=== PATIENT | female | born 1945 | race Caucasian/White ===

== ENCOUNTER 2017-11-28 18:44 | Inpatient (IN) | payer OTHER ==
[~2017-11-28] VITALS: Ht 162.6 cm; Wt 128.7 kg
[~2017-11-28 18:44] MED LIST: CALCIUM PO
[2017-11-28 19:35] LABS: HEMOGLOBIN 10.6 G/DL (11.9-15.5); MCH 26.6 PG (29.0-34.0); MCHC 32.1 G/DL (30.0-36.0); MCV 82.7 FL (83-99); PLATELET COUNT 543 K/uL (156-360); RBC DIS.WIDTH-CV 16.6 % (11.8-14.6); RBC DIS.WIDTH-SD 50.3 % (39-53); RED BLOOD COUNT 3.99 M/uL (3.80-5.20); WHITE BLOOD COUNT 22.7 K/uL (4.1-10.2)
[2017-11-28 19:36] LABS: CHLORIDE 103 mEq/L (99-109); POTASSIUM 4.1 mEq/L (3.7-5.4); SODIUM 137 mEq/L (136-147)
[2017-11-28 19:38] LABS: GLUCOSE 184 mg/dL (70-99)
[2017-11-28 19:42] LABS: CREATININE 0.7 mg/dL (0.6-1.3); GFR ESTIMATE (CALCULATED) > 59 mL/min/
[2017-11-28 19:43] LABS: UREA NITROGEN (BUN) 12 mg/dL (9-23)
[2017-11-28 19:47] LABS: TROP-I INTERPRETATION NEGATIVE; TROPONIN-I < 0.01 ng/mL (0.0-0.30)
[2017-11-28] MEDS ORDERED: DICYCLOMINE HCL10 MG PO (23:32)
[2017-11-28] MEDS ORDERED: GLIMEPIRIDE4 MG PO (23:34)
[2017-11-28] MEDS ORDERED: LEVEMIR FL100 UNIT/1 SC (23:35)
[2017-11-28] MEDS ORDERED: SUMATRIPTAN SUC50 MG PO (23:37)
[2017-11-28] MEDS ORDERED: MONTELUKAST SOD10 MG PO (23:38)
[2017-11-28] MEDS ORDERED: OXYCODONE-APAP1 EACH PO (23:39)
[2017-11-28] MEDS ORDERED: GABAPENTIN300 MG PO (23:41)
[2017-11-28] MEDS ORDERED: GABAPENTIN600 MG PO (23:43)
[2017-11-28] MEDS ORDERED: THEO-DUR,THEOC300 MG PO (23:46)
[2017-11-28] MEDS ORDERED: ADVAIR 500/501 DISK IH (23:47)
[2017-11-28] MEDS ORDERED: OMEPRAZOLE40 M1 PO (23:47)
[2017-11-28] MEDS ORDERED: LOSARTAN-HCTZ1 EAC1 PO (23:48)
[2017-11-28] MEDS ORDERED: NYSTATIN15 GM TP (23:49)
[2017-11-28] MEDS ORDERED: FUROSEMIDE40 MG PO (23:50)
[2017-11-28] MEDS ORDERED: ASPIR-LOW81 MG PO (23:51)
[2017-11-28] MEDS ORDERED: ALBUTEROL2.5 MG/3 M IH (23:52)
[2017-11-28] MEDS ORDERED: ZYRTEC10 M2 PO (23:52)
[2017-11-29] MEDS ORDERED: ONCE DAILY1 EACH PO (00:01)
[2017-11-29] MEDS ORDERED: AREDS 2 PO (00:04)
[2017-11-29] MEDS ORDERED: PROAIR HFA8.5 GM IH (00:04)
[2017-11-29] MEDS ORDERED: NOVOLOG 10100 UNITS/ SC (00:10)
[2017-11-29 00:43] LABS: ALBUMIN 3.1 g/dL (3.2-4.8)
[2017-11-29 00:46] LABS: TOTAL PROTEIN 5.8 g/dL (6.4-8.3)
[2017-11-29 00:48] LABS: TOTAL BILIRUBIN 0.1 mg/dL (0.0-1.0)
[2017-11-29 00:49] LABS: ALKALINE PHOSPHATASE 136 IU/L (3-129)
[2017-11-29 00:51] LABS: AST (GOT) 27 IU/L (2-34); DIRECT BILIRUBIN 0.1 mg/dL (0.0-0.3)
[2017-11-29 00:52] LABS: ALT (GPT) 15 IU/L (3-49); LIPASE 12 U/L (1.0-51.0)
[2017-11-29 01:33] LABS: ABS NEUTROPHIL COUNT 10.4; ANISOCYTOSIS 1+; BASOPHILS 1.3 %; EOSINOPHIL ABS CT 1.3; EOSINOPHILS 5.6 % (0-5.0); LYMPHOCYTES 43.5 % (15.0-45.0); MACROCYTES 1+; MONOCYTES 3.9 % (0-9.0); PLAT.SUFFICIENCY INCREASED; SEG.NEUTROPHILS 45.7 % (46.0-76.0)
[2017-11-29 02:14] VITALS: BP 149/67
[2017-11-29 06:13] LABS: HEMATOCRIT 31.8 % (36.0-46.0); HEMOGLOBIN 9.8 G/DL (11.9-15.5); MCH 25.7 PG (29.0-34.0); MCHC 30.8 G/DL (30.0-36.0); MCV 83.2 FL (83-99); PLATELET COUNT 535 K/uL (156-360); RBC DIS.WIDTH-CV 17.1 % (11.8-14.6); RBC DIS.WIDTH-SD 51.3 % (39-53); RED BLOOD COUNT 3.82 M/uL (3.80-5.20); WHITE BLOOD COUNT 17.4 K/uL (4.1-10.2)
[2017-11-29 06:36] LABS: CHLORIDE 104 MEQ/L (99-109); CREATININE 0.6 MG/DL (0.6-1.3); GFR ESTIMATE (CALCULATED) > 59 mL/min/; GLUCOSE 243 mg/dL (70-99); POTASSIUM 4.1 MEQ/L (3.7-5.4); SODIUM 140 MEQ/L (136-147); UREA NITROGEN (BUN) 12 mg/dL (9-23)
[2017-11-29 06:41] LABS: APPEARANCE CLEAR ((CLEAR)); BILIRUBIN NEGATIVE; BLOOD NEGATIVE; COLOR YELLOW ((YELLOW)); GLUCOSE (STRIP) NEGATIVE; KETONES NEGATIVE; LEUKOCYTES TRACE; NITRITE POSITIVE; PROTEIN (STRIP) NEGATIVE; SPECIFIC GRAVITY 1.029 (1.000-1.030); UROBILINOGEN 0.2 MG/DL (0.2-1.0)
[2017-11-29 06:50] LABS: BACTERIA RARE /HPF; EPITHELIAL CELLS RARE /HPF; MUCUS NONE SEEN /LPF; RED BLOOD CELLS 0-5 /HPF (0-5); UCUL ADDED? YES; WHITE BLOOD CELLS 15-20 /HPF (0-5)
[2017-11-29 07:05] VITALS: BP 145/64
[2017-11-29 11:09] VITALS: BP 138/60
[2017-11-29 15:31] VITALS: BP 149/65
[2017-11-29 20:41] VITALS: BP 125/60
[2017-11-29 23:22] VITALS: BP 149/65
[2017-11-30 04:21] VITALS: BP 124/57
[2017-11-30 06:05] LABS: HEMATOCRIT 29.3 % (36.0-46.0); HEMOGLOBIN 9.2 G/DL (11.9-15.5); MCH 25.6 PG (29.0-34.0); MCHC 31.4 G/DL (30.0-36.0); MCV 81.4 FL (83-99); PLATELET COUNT 492 K/uL (156-360); RBC DIS.WIDTH-CV 16.7 % (11.8-14.6); RBC DIS.WIDTH-SD 49.6 % (39-53); WHITE BLOOD COUNT 25.6 K/uL (4.1-10.2)
[2017-11-30 07:06] VITALS: BP 135/84
[2017-11-30 10:22] LABS: HEMOGLOBIN A1c (GLYCOHEMOGLOB) 7.8 % (Below 5.7)
[2017-11-30 10:56] VITALS: BP 131/61
[2017-11-30] MEDS ORDERED: CEFDINIR300 MG PO (14:52)
[2017-11-30] MEDS ORDERED: MEDROL DOSEPAK4 MG PO (14:52)
[2017-11-30 16:10] VITALS: BP 158/65
== END 2017-11-30 17:52 | disposition home health service (06) | DRG 191 ==
LOC: EME 18:44 → 5EAST 11-29 00:40 → EDOF 11-29 00:40 → ENRESERV 11-29 00:52 → 5EAST 11-29 01:50
PROVIDERS: Hospitalist; Physician Assistant
DX: J44.1 Chronic obstructive pulmonary disease with (acute) exacerbation (principal); J44.0 Chronic obstructive pulmonary disease with (acute) lower respiratory infection; J20.9 Acute bronchitis, unspecified; C85.90 Non-Hodgkin lymphoma, unspecified, unspecified site; N39.0 Urinary tract infection, site not specified; B96.20 Unspecified Escherichia coli [E. coli] as the cause of diseases classified elsewhere; D50.9 Iron deficiency anemia, unspecified; E11.65 Type 2 diabetes mellitus with hyperglycemia; T38.0X5A Adverse effect of glucocorticoids and synthetic analogues, initial encounter; E11.40 Type 2 diabetes mellitus with diabetic neuropathy, unspecified; E66.01 Morbid (severe) obesity due to excess calories; Z68.42 Body mass index [BMI] 45.0-49.9, adult; I10 Essential (primary) hypertension; G47.33 Obstructive sleep apnea (adult) (pediatric); E78.5 Hyperlipidemia, unspecified; R91.1 Solitary pulmonary nodule; G43.909 Migraine, unspecified, not intractable, without status migrainosus; K21.9 Gastro-esophageal reflux disease without esophagitis; K58.9 Irritable bowel syndrome, unspecified; G89.29 Other chronic pain; M54.9 Dorsalgia, unspecified; M19.90 Unspecified osteoarthritis, unspecified site; R53.1 Weakness; R60.0 Localized edema; Z79.4 Long term (current) use of insulin; Z96.651 Presence of right artificial knee joint
CPT/HCPCS: 71046; 71275; 74176; 80048; 80076; 81003; 82948; 83036; 83605; 83690; 83880; 84484; 85007; 85025; 85027; 87040; 87070; 87077; 87086; 87186; 87205; 93005; 93306; 93970; 94640; 94640 76; 94644; 99202; J0696; J1644; J1815; J2930; J7030; J7512